=== PATIENT | female | born 1975 | race Caucasian/White ===

== ENCOUNTER 2018-03-24 09:28 | Day surgery (SDC) | payer OTHER ==
[2018-03-22 10:35] LABS: APPEARANCE,URINE CLEAR; BILIRUBIN,URINE NEGATIVE (NEGATIVE); COLOR,URINE YELLOW; GLUCOSE, URINE >=500 mg/dL (NEGATIVE); KETONES,URINE NEGATIVE (NEGATIVE); LEUKOCYTE ESTERASE,URINE NEGATIVE (NEGATIVE); NITRITE,URINE NEGATIVE (NEGATIVE); PROTEIN,URINE NEGATIVE (NEGATIVE); UROBILINOGEN,URINE NEGATIVE mg/dL (<2.0)
[2018-03-22 10:39] LABS: HEMATOCRIT 38.9 % (36.0-47.0); HEMOGLOBIN 13.1 g/dL (12.0-15.5); MEAN CORPUSCULAR HGB CONC 33.8 g/dL (32.0-36.0); MEAN CORPUSCULAR VOLUME 89 fl (80-97); PLATELET COUNT 373 10^3/uL (150-450); RED BLOOD COUNT 4.38 10^6/uL (3.72-5.28); RED CELL DISTRIBUTION WIDTH 14.2 % (11.5-14.0); WHITE BLOOD COUNT 8.1 10^3/uL (4.0-10.5)
[2018-03-22 10:50] LABS: ANION GAP 6 (5-19); BLOOD UREA NITROGEN 12 mg/dL (7-20); CALCIUM 9.1 mg/dL (8.4-10.2); CARBON DIOXIDE 25 mmol/L (22-30); CHLORIDE 105 mmol/L (98-107); GLUCOSE 216 mg/dL (75-110); POTASSIUM 5.4 mmol/L (3.6-5.0); SODIUM 135.9 mmol/L (137-145)
[~2018-03-24 09:28] MED LIST: BUPIVACAINE HCL 0.25 % INJ/PF (2.5 MG/1 ML) 30 ML VIAL ONE; CEFAZOLIN SODIUM 2 GM in DEXTROSE 5%-WATER 100 ML IV PRN; GABAPENTIN 300 MG CAPSULE ONE; GABAPENTIN 300 MG CAPSULE PO PRN; LACTATED RINGERS 1000 ML IV PRN; LIDOCAINE 0.5% INJ-PF (5 MG/ML) 50 ML SDV SUBCUT PRN; SCOPOLAMINE HYDROBROMIDE 1.5 MG PATCH.TD72 ONE; SCOPOLAMINE HYDROBROMIDE 1.5 MG PATCH.TD72 TD PRN
[2018-03-24 10:36] LABS: POTASSIUM 4.4 mmol/L (3.6-5.0)
[2018-03-24] MEDS ORDERED: NEOSTIGMINE METHYLSULFATE 10 MG/10 ML VIAL ONE (10:52)
[2018-03-24] MEDS ORDERED: LIDOCAINE 2% INJ-PF (20 MG/ML) 2 ML AMPUL ONE (10:52)
[2018-03-24] MEDS ORDERED: ONDANSETRON HCL INJ/PF 4 MG/2 ML SDV ONE (10:52)
[2018-03-24] MEDS ORDERED: KETOROLAC TROMETHAMINE 60 MG/2 ML SDV ONE (10:52)
[2018-03-24] MEDS ORDERED: ROCURONIUM BROMIDE INJ 50 MG/5 ML VIAL IV ONE (10:52)
[2018-03-24] MEDS ORDERED: GLYCOPYRROLATE 1 MG/5 ML SYRINGE ONE (10:52)
[2018-03-24] MEDS ORDERED: DEXAMETHASONE SOD PHOSPHATE INJ 4 MG/1 ML VIAL ONE (10:52)
[2018-03-24] MEDS ORDERED: SUCCINYLCHOLINE CHLORIDE INJ 200 MG/10 ML VIAL ONE (10:52)
[2018-03-24] MEDS ORDERED: METOCLOPRAMIDE HCL INJ/PF 10 MG/2 ML SDV ONE (10:52)
[2018-03-24] MEDS ORDERED: FENTANYL CITRATE INJ/PF 250 MCG/5 ML AMPULE ONE (12:15)
[2018-03-24] MEDS ORDERED: MIDAZOLAM 2 MG/2 ML INJ ONE (12:15)
[2018-03-24] MEDS ORDERED: LIDOCAINE 2% INJ-PF (20 MG/ML) 10 ML AMPUL ONE (12:15)
[2018-03-24] MEDS ORDERED: DEXMEDETOMIDINE INJ 80 MCG/20 ML VIAL IV ONE (12:15)
[2018-03-24] MEDS ORDERED: PROPOFOL INJ 200 MG/20 ML VIAL IV ONE (12:16)
[2018-03-24] MEDS ORDERED: ACETAMINOPHEN 1,000 MG/100 ML RTUPB IV ONE (12:16)
[2018-03-24] MEDS ORDERED: BUPIVACAINE HCL 0.25 % INJ/PF (2.5 MG/1 ML) 30 ML VIAL ONE (13:51)
[2018-03-24] MEDS ORDERED: FENTANYL CITRATE INJ/PF 100 MCG/2 ML AMPUL IV PRN ×3 (15:20)
[2018-03-24] MEDS ORDERED: MORPHINE SULFATE 10 MG/ML INJ IV PRN (15:20)
[2018-03-24] MEDS ORDERED: PROMETHAZINE HCL INJ 25 MG/1 ML VIAL IV PRN ×2 (15:20)
[2018-03-24] MEDS ORDERED: ONDANSETRON HCL INJ/PF 4 MG/2 ML SDV IV PRN ×2 (15:20→16:14)
[2018-03-24] MEDS ORDERED: DIPHENHYDRAMINE HCL 50 MG/ML VIAL IV PRN (15:20)
[2018-03-24] MEDS ORDERED: MEPERIDINE HCL/PF INJ 25 MG/1 ML DISP.SYRIN IV PRN (15:20)
--- NOTE | 2018-03-24 15:46 | Discharge Summary ---
Discharge Summary (SDC) - Discharge Final Diagnosis: Pelvic Pain Endometriosis of pelvic peritoneum Enterocele Broad ligament venous congestion Date of Surgery: 03/24/18 Discharge Date: 03/24/18 Condition: Good Forms: Post Operative Treatment or Instructions: Robotic assisted total laparoscopic hysterectomy, bilateral salpingectomy and cauloplasty Diagnostic Cystoscopy Prescriptions: Ondansetron HCl [Zofran 8 mg Tablet] 8 mg PO Q8HP PRN #30 tablet PRN Reason: Ibuprofen [Motrin 800 mg Tablet] 800 mg PO Q8H PRN #30 tab PRN Reason: Oxycodone HCl/Acetaminophen [Percocet 5-325 mg Tablet] 1 - 2 tab PO ASDIR PRN #25 tablet PRN Reason: Referrals: YANG PADILLA MD [NO LOCAL MD] - (Please call Mrs Hoskins in the office to schedule your 2 week and 6 week follow up appts. For clinical concerns please contact RITU Dorado at [phone]. For emergencies please report to the [facility] ER. ) Discharge Diet: As Tolerated Respiratory Treatments at Home: Deep Breathing/Coughing Discharge Activity: Activity As Tolerated, Balance Activity w/Rest, No Li fting/Push/Pulling - over 25 pounds, Pelvic Rest, Slowly Increase Activity, No tub bath - you may shower Home Care Assistance: None Needed Report the Following to Your Physician Immediately: Vomiting, Increase in Pain, Fever over 101 Degrees, Drainage-Yellow, Drainage-Foul Smelling, Increased Vaginal Bleed, IV Site Infection Signs, Urinary Infection Signs
[2018-03-24] MEDS ORDERED: OXYCODONE-ACETAMINOPHEN 5-325 MG TABLET PO PRN (16:14)
[2018-03-24] MEDS ORDERED: FENTANYL CITRATE INJ/PF 100 MCG/2 ML AMPUL ONE (16:34)
--- NOTE | 2018-03-24 17:07 | OPERATIVE REPORT E ---
Operative Report NAME: JOSSUE GOLD : 1975 AGE: 43Y DATE OF SURGERY: 03/24/2018 ROOM: PREOPERATIVE DIAGNOSIS: PELVIC PAIN, SUSPECTED ENDOMETRIOSIS. HISTORY OF ESSURE PROCEDURE FOR PERMANENT STERILIZATION. POSTOPERATIVE DIAGNOSIS: PELVIC PAIN, SUSPECTED ENDOMETRIOSIS. HISTORY OF ESSURE PROCEDURE FOR PERMANENT STERILIZATION, ENTEROCELE. OPERATION: ROBOTIC ASSISTED TOTAL LAPAROSCOPIC HYSTERECTOMY AND BILATERAL SALPINGECTOMY WITH FULGURATION OF ENDOMETRIOSIS AND TORO CULDOPLASTY, PLUS DIAGNOSTIC CYSTOSCOPY. SURGEON: YANG PADILLA M.D. ANESTHESIA: General. COMPLICATIONS: None. ESTIMATED BLOOD LOSS: 200 mL URINE OUTPUT: Clear at the end of the procedure. SPECIMENS: Uterus and cervix with bilateral fallopian tubes. FINDINGS: During placement of the uterine manipulator, a large posterior apical enterocele was noted vaginally. Upon entrance to the pelvis, the uterus was found to be enlarged to approximately 10 weeks size. Bilateral fallopian tubes and bilateral broad ligaments had some distention and venous congestion. There was powder burn lesions throughout the pelvic peritoneum anterior and bilateral to the uterus. The right ovary had an approximately 2 cm size simple ovarian cyst which was drained. INDICATIONS: This is a 43-year-old female who has had persistent pelvic pain and dyspareunia despite medical management and previous surgical management, complicated after the placement of her Essure coils. After discussing the risks and benefits and alternatives including but not limited to observation, further medical management, open abdominal hysterectomy, total vaginal hysterectomy, the patient elected for the above procedure. PROCEDURE: After she was properly consented, she was taken to the operating room where general anesthesia was undertaken with endotracheal intubation. She was transferred to a dorsal lithotomy position with adjustable Titus stirrups, prepped and draped in the usual sterile fashion. Surgical timeout was held. Napier catheter was placed. Uterine manipulator in medium size was placed in the typical fashion. Gloves were changed. I proceeded above, where 0.25% plain Marcaine local anesthetic was placed supraumbilical. A 12 mm skin incision was made with a scalpel followed by a Veress needle placement into the peritoneal cavity, confirmed with a drop in CO2 pressure to 0 mmHg. The pneumoperitoneum was established to a pressure of 15 mmHg. Then, the 12 mm bladeless trocar was advanced into the pneumoperitoneum, and immediate visualization with the camera demonstrates an atraumatic entry. We subsequently placed 2 right and 1 left lateral ports, 8 mm in size, following the routine of local anesthetic, skin incision and the placement of the port under direct visualization. The ports were then placed. The patient was put in steep Trendelenburg position. Findings noted above. The robot was docked and I scrubbed out and proceeded to the robotic console. The anatomy was again inspected. Several photographs were taken with the robotic camera. The ureters were identified by their peristalsis in the usual course in the pelvic brim bilaterally and traced down toward where they dived deep and lateral to the cervix. Dissection was begun on the patient's right side using the vessel sealer and bipolar graspers. The round ligament was cauterized and transected. The broad ligament was opened and dissected toward the bladder, creating the bladder flap which was reduced inferiorly. Next, the vessel sealer was used to dissect the right fallopian tube from the tubo-ovarian ligament and then further to disconnect the uterovarian ligament, dissecting down to meet with the transected round ligament. Finally, dissection was used to identify the uterine artery in its course near the lower uterine segment. This was cauterized and transected. Next, the dissection was repeated on the left hand side. The bladder flap was reduced further inferiorly and then the colpotomy was performed using monopolar scissors. The specimen was freed and pulled through the vagina. The vaginal cuff was then closed with a running V-Lock suture incorporating the uterosacral pedicles for support. The enterocele was closed with a Toro's type culdoplasty using a delayed absorbable suture in a V-Lock configuration. The pelvis was irrigated copiously. A small amount of venous oozing from the bladder flap was noted. Cautery and application of FloSeal hemostatic agent was applied to control bleeding. The pelvis was again reinspected and found to be hemostatic. The CO2 gas was relieved and the instruments were removed from the abdomen, but the ports were left in place. I re-scrubbed, changed gloves, and proceeded below for the cystoscopy, which was performed yielding normal results. The bladder was found to be intact. Bubbles were identified anteriorly in the apex. The ureters both spilled with forceful ureteral jets. The bladder was then drained of all cystoscopic fluid. The Napier was not replaced. At this point, the gloves were then changed. I proceeded back above. The ports were all removed, as was all CO2 gas. The 12 mm port site fascia was closed with 0 Vicryl interrupted suture. The skin of the right upper quadrant port and the 12 mm umbilical port was closed with 4-0 Monocryl in a subcuticular fashion. Dermabond was used to close the lateral ports as well as to apply a dressing to the 2 central ports. Anesthesia was reversed and sponge, lap, and needle counts were correct at the end of the procedure, and the patient was taken to the PACU in stable condition. DICTATING PHYSICIAN: YANG PADILLA M.D. [id number] PHY#: [id number] ID: [id number] JOB#: [id number] ACCT: [id number] cc:YANG PADILLA M.D. >
[2018-03-24] MEDS ORDERED: ERYTHROMYCIN 0.5% OPH OINTMENT 3.5 GM TUBE OD PRN (19:01)
[2018-03-24 22:00] VITALS: BP 131/82
== END 2018-03-24 21:40 | disposition home or self-care (01) ==
LOC: OROUT 09:28 → 2S 17:40 → OROUT 21:40
PROVIDERS: ATTEND Obstetrics & Gynecology
DX: N92.0 Excessive and frequent menstruation with regular cycle (principal); R10.2 Pelvic and perineal pain; N94.12 Deep dyspareunia; D64.9 Anemia, unspecified; N80.0 Endometriosis of uterus; Z87.891 Personal history of nicotine dependence; Z79.899 Other long term (current) drug therapy; G43.909 Migraine, unspecified, not intractable, without status migrainosus
CPT/HCPCS: 58571; S2900; 36415; 80048; 81001; 82947; 840; 84132; 84703; 85027; 86850; 86900; 86901; 88307; J0131; J0330; J0690; J1100; J1885; J2250; J2405; J2704; J2765; J3010; J3490